=== PATIENT | female | born 1950 | race Hispanic/Latino ===

== ENCOUNTER 2019-07-21 14:51 | Emergency (ER) | payer MEDICARE ==
[2019-07-21 15:03] VITALS: BP 113/77
--- NOTE | 2019-07-21 15:08 | Event Note ---
ED Screening Note Date of service: 07/21/19 Time: 15:04 ED Screening Note: Patient here reports panic attack and out og xanax / Take 2 mg daily and ran out x 3ays and called Dr. Hudson and called office and no one called back. Reports nausea and shaking and feels like she is going through withdrawals. Denies cp or sob. Denies abdominal pain Anxiety- ran out of xanax. Managed by Psych This initial assessment/diagnostic orders/clinical plan/treatment(s) is/are subject to change based on patients health status, clinical progression and re- assessment by fellow clinical providers in the ED. Further treatment and workup at subsequent clinical providers discretion. Patient/guardian urged not to elope from the ED as their condition may be serious if not clinically assessed and managed. Initial orders include:
--- NOTE | 2019-07-21 16:20 | Emergency Department Report ---
ED Anxiety HPI - General Chief Complaint: Anxiety Stated Complaint: REFILL Time Seen by Provider: 07/21/19 15:03 Source: patient Mode of arrival: Ambulatory - History of Present Illness Initial Comments: Patient is a 69-year-old female who presents emergency room with complaints of a medication refill. She states that she ran out of her Xanax. States that she feels hot, has a postnasal drip, feels nervous. she denies any abdominal pain, chest pain, shortness of breath, vomiting, fever. She denies any SI, HI, or hallucinations. Patient states that she tried to call her doctor to refill her medications but did not yet get a response. Patients bottle of Xanax was filled on 06/27/19 and is supposed to last her until 07/28/19 the patient states she does not have anymore left. She states that she has had increased stress due to issues with her sibling. - Related Data Home Medications: Home Medications Medication Instructions Recorded Confirmed Last Taken Escitalopram [Lexapro] 20 mg PO DAILY 09/26/14 09/26/14 Unknown Gabapentin 400 mg PO TID 09/26/14 09/26/14 Unknown buPROPion SR [Wellbutrin SR] 100 mg PO BID 09/26/14 09/26/14 Unknown Previous Rx's Medication Instructions Recorded Last Taken Type Potassium Chloride [K-Dur] 20 meq PO BID #30 tablet 10/01/14 Unknown Rx Allergies/Adverse Reactions: Allergies Allergy/AdvReac Type Severity Reaction Status Date / Time No Known Drug Allergies Allergy Unknown Verified 09/26/14 14:31 ED Review of Systems ROS: Stated complaint: REFILL Other details as noted in HPI Comment: All other systems reviewed and negative ED Past Medical Hx - Past Medical History Previous Medical History?: Yes Hx Psychiatric Treatment: Yes - Surgical History Past Surgical History?: Yes Additional Surgical History: Unable to assess - Social History Smoking Status: Never Smoker Substance Use Type: None - Medications Home Medications: Home Medications Medication Instructions Recorded Confirmed Last Taken Type Escitalopram [Lexapro] 20 mg PO DAILY 09/26/14 09/26/14 Unknown History Gabapentin 400 mg PO TID 09/26/14 09/26/14 Unknown History buPROPion SR [Wellbutrin SR] 100 mg PO BID 09/26/14 09/26/14 Unknown History Potassium Chloride [K-Dur] 20 meq PO BID #30 tablet 10/01/14 Unknown Rx ED Physical Exam - General Limitations: No Limitations General appearance: alert, anxious - Head Head exam: Present: atraumatic, normocephalic - Eye Eye exam: Present: normal appearance, EOMI - ENT ENT exam: Present: mucous membranes moist - Respiratory Respiratory exam: Absent: respiratory distress - Cardiovascular Cardiovascular Exam: Present: regular rate - Neurological Exam Neurological exam: Present: alert, oriented X3 - Psychiatric Psychiatric exam: Present: normal affect, anxious - Skin Skin exam: Present: warm, dry, intact ED Course Vital Signs 07/21/19 15:01 Temperature 97.7 F Pulse Rate 71 Respiratory 16 Rate Blood Pressure 113/77 O2 Sat by Pulse 96 Oximetry ED Medical Decision Making - Medical Decision Making Patient is a 69-year-old female who presents emergency room with complaints of a medication refill. She states that she ran out of her Xanax. States that she feels hot, has a postnasal drip, feels nervous. she denies any abdominal pain, chest pain, shortness of breath, vomiting, fever. She denies any SI, HI, or hallucinations. Patient states that she tried to call her doctor to refill her medications but did not yet get a response. Patients bottle of Xanax was filled on 06/27/19 and is supposed to last her until 07/28/19 the patient states she does not have anymore left. She states that she has had increased stress due to issues with her sibling. vitals are normal. no clinical s/sx of withdrawal. discussed with pt that we would not be refilling her xanax today as she was supposed to have another weeks worth based on her prescription bottle. discussed she would have to receive this scheduled drug through her PCP or a psychiatrist. pt given hydroxyzine while in the ED for her anxiety and she did not drive to the ED. discussed the highly addictive properties of xanax and that the number 1 treatment for anxiety is coping mechanisms therapy and then the pharm therapy is an SSRI. advised pt to please follow-up with your primary care doctor on 07/23/19 to discuss refill of your medications. Please follow-up with a psychiatrist. Please practice coping mechanisms, watching videos to calm you do wn, therapy. return to the emergency room for any new or worsening symptoms. return immediately if begin experiencing thoughts of hurting yourself or others. Critical care attestation.: If time is entered above; I have spent that time in minutes in the direct care of this critically ill patient, excluding procedure time. ED Disposition Clinical Impression: Anxiety, Medication refill Disposition: - TO HOME OR SELFCARE Is pt being admited?: No Does the pt Need Aspirin: No Condition: Stable Instructions: Anxiety (ED) Additional Instructions: Please follow-up with your primary care doctor on 07/23/19 to discuss refill of your medications. Please follow-up with a psychiatrist. Please practice coping mechanisms, watching videos to calm you down, therapy. return to the emergency room for any new or worsening symptoms. return immediately if begin experiencing thoughts of hurting yourself or others. Referrals: [facility] [Outside] - 2-3 Days your, primary care doctor [Other] - 2-3 Days Time of Disposition: 16:18 Print Language: KOREAN
[2019-07-21] MEDS ORDERED: ATARAX PO ONE (17:00)
== END 2019-07-21 16:34 | disposition home or self-care (01) ==
LOC: ED 14:51
DX: F41.0 Panic disorder [episodic paroxysmal anxiety] (principal); Z76.0 Encounter for issue of repeat prescription; Z79.899 Other long term (current) drug therapy

== ENCOUNTER 2019-11-07 16:40 | Inpatient (IN) | payer MEDICARE ==
--- NOTE | 2019-11-07 18:12 | Emergency Department Report ---
Blank Doc - Documentation Documentation: 69-year-old female that presents with nausea, vomiting, and depression/anxiety. Denies HI/SI. This initial assessment/diagnostic orders/clinical plan/treatment(s) is/are subject to change based on patient's health status, clinical progression and re- assessment by fellow clinical providers in the ED. Further treatment and workup at subsequent clinical providers discretion. Patient/guardians urged not to elope from the ED as their condition may be serious if not clinically assessed and managed. Initial orders include: 1- Patient sent to [facility] for further evaluation and treatment 2- labs 3- UA
[2019-11-07 18:50] LABS: Basophils % (Auto) 0.3 % (0.0-1.8); Hematocrit 39.8 % (30.3-42.9); Hemoglobin 13.1 gm/dl (10.1-14.3); Lymphocytes # (Auto) 1.4 K/mm3 (1.2-5.4); Lymphocytes % (Auto) 10.8 % (13.4-35.0); Mean Corpuscular HGB Conc 33 % (30-34); Mean Corpuscular Volume 91 fl (79-97); Monocytes # (Auto) 0.8 K/mm3 (0.0-0.8); Platelet Count 488 K/mm3 (140-440); Red Blood Count 4.35 M/mm3 (3.65-5.03); Red Cell Distribution Width 13.1 % (13.2-15.2)
[2019-11-07 19:05] LABS: Alanine Aminotransferase 23 units/L (7-56); Albumin 4.3 g/dL (3.9-5); BUN/Creatinine Ratio 16; Blood Urea Nitrogen 11 mg/dL (7-17); Calcium 8.9 mg/dL (8.4-10.2); Hemolysis Index 60
--- NOTE | 2019-11-07 20:19 | Emergency Department Report ---
Vomiting/Diarrhea - HPI Chief Complaint: Nausea/Vomiting/Diarrhea Stated Complaint: N/V/ABD PAIN Time Seen by Provider: 11/07/19 18:11 Duration: 9 days Severity: severe Nausea/Vomiting Severity: Severe Diarrhea Severity: None Pain Location: Generalized Pain Severity: Severe Symptoms: No Watery Diarrhea, No Bloody diarrhea, No Fever, No Able to Tolerate Fluids, No Recent Unusual Foods, No Recent Untreated Water, No Recent use of Antibiotics, No Family w/ Similar Symptoms, No Contacts w/ Similar Symptoms, No Rash, No Hematuria, No Recent URI Symptoms Other History: Patient is a 69-year-old female that presents emergency room with complaints of nausea vomiting x9 days. Patient states that she has not been able to hold any food down for 9 days. Patient states she has been able to hold any water down for 9 days. Patient denies diarrhea. Patient states she is h aving abdominal pain. Patient states her pain is a 3 out of 10. Patient states her abdominal pain is intermittent. Patient states with rest her pain is better. Patient states her pain is worse with vomiting and movement. Patient states she was seen yesterday at another ER, [facility] and was given IV fluids and IV Zofran. Patient was then discharged with oral Zofran. Patient states she is still vomiting. ED Review of Systems ROS: Stated complaint: N/V/ABD PAIN Other details as noted in HPI Constitutional: denies: chills, fever Eyes: denies: eye pain, eye discharge, vision change ENT: denies: ear pain, throat pain Respiratory: denies: cough, shortness of breath, wheezing Cardiovascular: denies: chest pain, palpitations Endocrine: no symptoms reported Gastrointestinal: abdominal pain, nausea, vomiting. denies: diarrhea, constipation, hematemesis, melena, hematochezia Genitourinary: denies: urgency, dysuria, discharge Musculoskeletal: denies: back pain, joint swelling, arthralgia Skin: denies: rash, lesions Neurological: denies: headache, weakness, paresthesias Psychiatric: denies: anxiety, depression Hematological/Lymphatic: denies: easy bleeding, easy bruising ED Past Medical Hx - Past Medical History Previous Medical History?: Yes Hx Psychiatric Treatment: Yes (ANXIETY,DEPRESSION) Hx Dementia: Yes (NEW [place]NSET) - Surgical History Past Surgical History?: No Additional Surgical History: Unable to assess - Social History Smoking Status: Never Smoker Substance Use Type: None - Medications Home Medications: Home Medications Medication Instructions Recorded Confirmed Last Taken Type Escitalopram [Lexapro] 20 mg PO DAILY 09/26/14 11/07/19 Unknown History Gabapentin 400 mg PO TID 09/26/14 11/07/19 Unknown History buPROPion SR [Wellbutrin SR] 100 mg PO BID 09/26/14 11/07/19 Unknown History Potassium Chloride [K-Dur] 20 meq PO BID #30 tablet 10/01/14 11/07/19 Unknown Rx Promethazine HCl [Promethazine TAB] 12.5 mg PO [id number] PRN #12 tab 09/27/19 11/07/19 Unknown Rx Levothyroxine [Synthroid] 75 mcg PO QAM 11/07/19 11/07/19 Unknown History [place] Carbonate ER [Lithobid ER] 1 tab PO QHS 11/07/19 11/08/19 Unknown History QUEtiapine [SEROquel] 100 mg PO QDAY 11/07/19 11/07/19 Unknown History Vomiting Diarrhea Exam - Exam General: Vital signs noted. No distress. Alert and acting appropriately. HEENT: Yes Moist Mucous Membranes, No Pharyngeal Erythema, No Pharyngeal Exudates, No Rhinorrhea, No Conjuctival Injection, No Frontal Tenderness, No Maxillary Tenderness Neck: No Adenopathy, No Rigidity Lungs: Yes Clear Lung Sounds, Yes Good Air Exchange, No Wheezes, No Stridor, No Cough, No Nasal Flaring, No Retractions, No Use of Accessory Muscles Heart exam: Regular: Yes, Murmur: No, Tachycardia: No Abdomen: Tenderness: No, Peritoneal Signs: No, Distention: No, Hyperactive Bowel sounds: No Skin exam: Rash: No, Edema: No, Normal turgor: Yes Neurologic: Alert and oriented, no deficits. Musculoskeletal: Unremarkable. ED Course Vital Signs 11/07/19 18:08 Temperature 97.7 F Pulse Rate 73 Respiratory 20 Rate Blood Pressure 168/77 O2 Sat by Pulse 99 Oximetry - Reevaluation(s) Reevaluation #1: Initial evaluation done. Patient will have a CT of the abdomen since the patient is having 9 days of nausea and vomiting and has had 2 ER visits. 11/07/19 20:31 Reevaluation #2: Patient is still nauseated. I discussed all results with patient. I Discussed plan of care with patient. Patient will be admitted to the hospitalist service. Patient agrees with plan of care and admission. 11/07/19 22:30 - Consultations Consultation #1: Hospitalist consulted for admission. Hospitalist to admit patient. Bridge orders placed. 11/07/19 22:33 ED Medical Decision Making - Lab Data Result diagrams: 11/07/19 18:37 11/07/19 18:37 - Radiology Data Radiology results: report reviewed CT ABDOMEN AND PELVIS WITH CONTRAST INDICATION / CLINICAL INFORMATION: Nausea, vomiting, abdominal pain. TECHNIQUE: Axial CT images were obtained through the abdomen and pelvis after 100 mL Omnipaque [address] scans at this location are performed using CT dose reduction for ALARA by means of automated exposure control. COMPARISON: CT scan from yesterday FINDINGS: There is some mild motion artifact on this examination. LOWER CHEST: No significant abnormality. LIVER: No significant abnormality. BILIARY SYSTEM: No significant abnormality. PANCREAS: No significant abnormality. SPLEEN: No significant abnormality. ADRENALS: No significant abnormality. KIDNEYS and URETERS: No significant abnormality. STOMACH / BOWEL: No acute inflammatory changes or evidence of obstruction in the stomach or small bowel. There is colonic diverticulosis but no evidence of acute diverticulitis. The appendix is normal. PERITONEUM: No free fluid. No free air. No fluid collection. LYMPH NODES: No adenopathy. VASCULAR STRUCTURES: Minimal atherosclerosis. No aneurysm. The celiac axis and the superior and inferior mesenteric artery origins are widely patent. Renal arteries are normal. URINARY BLADDER: Distended but otherwise unremarkable. No wall thickening, nodularity or calculus. REPRODUCTIVE ORGANS: Uterus is absent. No significant adnexal abnormality. ADDITIONAL FINDINGS: None SKELETAL SYSTEM: No acute finding or significant change. Lumbar scoliosis. IMPRESSION: No significant abnormality. No significant change - Medical Decision Making Patient is a 69-year-old female that presents emergency room for abdominal pain and intractable nausea vomiting. Patient did not have any food or water for 9 days. Patient was recently seen in another ER for the same symptoms and was given outpatient treatment. Patient essentially failed outpatient treatment. Patient will be admitted to the hospitalist service for observation. Patient given IV fluids and Zofran. Patient's labs are remarkable for metabolic acidosis and hypokalemia. - Differential Diagnosis Gastritis, gastroenteritis, intractable n/v, abdominal pain, SBO Critical Care Time: Yes Critical care time in (mins) excluding proc time.: 35 Critical care attestation.: If time is entered above; I have spent that time in minutes in the direct care of this critically ill patient, excluding procedure time. Critical Care Time: 35 minutes ED Disposition Clinical Impression: Intractable nausea and vomiting, Gastroenteritis, Metabolic acidosis, Hypokalemia, Dehydration Abdominal pain Qualifiers: Abdominal location: generalized Qualified Code(s): R10.84 - Generalized abdominal pain Disposition: 09 OP ADMIT IP TO THIS HOSP Is pt being admited?: Yes Does the pt Need Aspirin: No Condition: Critical Time of Disposition: 22:33
[2019-11-07] MEDS ORDERED: ONDANSETRON 4 MG/2 ML INJ IV ONE (20:28)
[2019-11-07] MEDS ORDERED: SODIUM CHLORIDE 0.9% 1000 ML 1,000 ML IV ONE (20:28)
--- NOTE | 2019-11-07 21:51 | Cat Scan Report ---
CT ABDOMEN AND PELVIS WITH CONTRAST INDICATION / CLINICAL INFORMATION: Nausea, vomiting, abdominal pain. TECHNIQUE: Axial CT images were obtained through the abdomen and pelvis after 100 mL Omnipaque [address] scans at this location are performed using CT dose reduction for ALARA by means of automated exposure control. COMPARISON: CT scan from yesterday FINDINGS: There is some mild motion artifact on this examination. LOWER CHEST: No significant abnormality. LIVER: No significant abnormality. BILIARY SYSTEM: No significant abnormality. PANCREAS: No significant abnormality. SPLEEN: No significant abnormality. ADRENALS: No significant abnormality. KIDNEYS and URETERS: No significant abnormality. STOMACH / BOWEL: No acute inflammatory changes or evidence of obstruction in the stomach or small bow el. There is colonic diverticulosis but no evidence of acute diverticulitis. The appendix is normal. PERITONEUM: No free fluid. No free air. No fluid collection. LYMPH NODES: No adenopathy. VASCULAR STRUCTURES: Minimal atherosclerosis. No aneurysm. The celiac axis and the superior and infer ior mesenteric artery origins are widely patent. Renal arteries are normal. URINARY BLADDER: Distended but otherwise unremarkable. No wall thickening, nodularity or calculus. REPRODUCTIVE ORGANS: Uterus is absent. No significant adnexal abnormality. ADDITIONAL FINDINGS: None SKELETAL SYSTEM: No acute finding or significant change. Lumbar scoliosis. IMPRESSION: No significant abnormality. No significant change Signer Name: Mian Butler MD Signed: 11/07/2019 9:47 PM Workstation Name: [id number]
[2019-11-07 22:11] LABS: Bilirubin,Urine NEG (Negative); Blood,Urine NEG (Negative); Color,Urine Straw (Yellow); Protein,Urine <15 mg/dL mg/dL (Negative); Urobilinogen,Urine < 2.0 mg/dL (<2.0)
--- NOTE | 2019-11-07 23:15 | History and Physical Report ---
History of Present Illness Date of admission: 11/07/19 22:34 History of present illness: 69-year-old woman with a history of anxiety, depression, dementia was brought to emergency room because she states that she has been having nausea vomiting for 9 days. However when I saw the patient she states she only have nausea, no vomiting. She was seen at [facility] on Tuesday for same symptoms and was discharged home. She came to the emergency room on the of this month, she is under a different medical record number, her work-up was negative including a CAT scan of the abdomen and pelvis, the patient was discharged to home, after tolerating oral intake in the emergency room. Patient is being admitted for intractable nausea, decreased oral intake Review Of Systems: Constitutional: no weight loss, fever, chills Ears, eyes, nose, mouth and throat: no nasal congestion, no nasal discharge, no sinus pressure, blurry vision, diplopia Neck: No neck pain or rigidity. Cardiovascular: No palpitations, chest pain Respiratory: No shortness of breath, cough Gastrointestinal: No hematochezia Genitourinary : no dysuria, frequency Musculoskeletal: no muscle ache , joint pain Integumentary: no rash, no pruritis Neurological: no parathesias, focal weakness Endocrine: no cold or heat intolerance, no polyuria or polydipsia Hematologic/Lymphatic: no easy bruising, no easy bleeding, no gland swelling Allergic/Immunologic: no urticaria, no angioedema. PAST MEDICAL HISTORY: anxiety, depression, dementia PAST SURGICAL HISTORY: None SOCIAL HISTORY: Denies alcohol, tobacco, drugs FAMILY HISTORY: Hypertension Medications and Allergies Allergies Allergy/AdvReac Type Severity Reaction Status Date / Time No Known Drug Allergies Allergy Unknown Verified 09/26/14 14:31 Home Medications Medication Instructions Recorded Confirmed Last Taken Type Escitalopram [Lexapro] 20 mg PO DAILY 09/26/14 11/07/19 Unknown History Gabapentin 400 mg PO TID 09/26/14 11/07/19 Unknown History buPROPion SR [Wellbutrin SR] 100 mg PO BID 09/26/14 11/07/19 Unknown History Potassium Chloride [K-Dur] 20 meq PO BID #30 tablet 10/01/14 11/07/19 Unknown Rx Promethazine HCl [Promethazine TAB] 12.5 mg PO [id number] PRN #12 tab 09/27/19 11/07/19 Unknown Rx Levothyroxine [Synthroid] 75 mcg PO QAM 11/07/19 11/07/19 Unknown History [place] Carbonate ER [Lithobid ER] 1 tab PO QHS 11/07/19 11/08/19 Unknown History QUEtiapine [SEROquel] 100 mg PO QDAY 11/07/19 11/07/19 Unknown History Active Meds: Active Medications Acetaminophen (Tylenol) 650 mg PO Q4H PRN PRN Reason: Pain MILD(1-3)/Fever >100.5/HUMPHRIES Sodium Chloride (Nacl 0.9% 1000 Ml) 1,000 mls @ 125 mls/hr IV DIRECT SHELBY Potassium Chloride (Kcl 10meq/100ml) 10 meq in 100 mls @ 100 mls/hr IV Q1H SHELBY Stop: 11/08/19 03:44 Ondansetron HCl (Zofran) 4 mg IV Q4H PRN PRN Reason: Nausea And Vomiting Potassium Chloride (K-Dur) 40 meq PO ONCE ONE Stop: 11/07/19 23:29 Sodium Chloride (Sodium Chloride Flush Syringe 10 Ml) 10 ml IV BID SHELBY Sodium Chloride (Sodium Chloride Flush Syringe 10 Ml) 10 ml IV PRN PRN PRN Reason: LINE FLUSH Exam - Physical Exam Narrative exam: Gen. appearance: Patient lying in bed, no apparent distress HEENT: Normocephalic, atraumatic, pupils equally round and reactive to light, extraocular movement intact, and no sclericterus,. No JVD or thyromegaly or nodule,neck supple, no carotid bruit ,mucous membranes moist, no exudate or erythema Heart: S1, S2, regular rate and rhythm Lungs: Clear bilaterally, breathing comfortable Abdomen: Positive bowel sounds, nontender, nondistended, no organomegaly Extremity: no edema, cyanosis, clubbing Skin: No rash, nodules, warm, dry Neuro: speech is fluent, moves extremities, sensory intact - Constitutional Vitals: Temp Pulse Resp BP Pulse Ox 97.7 F 73 20 168/77 99 11/07/19 18:08 11/07/19 18:08 11/07/19 18:08 11/07/19 18:08 11/07/19 18:08 Results - Labs CBC & Chem 7: 11/08/19 03:47 11/08/19 03:47 Labs: Abnormal lab results 11/07/19 11/07/19 Range/Units 18:37 18:37 WBC 13.2 H (4.5-11.0) K/mm3 RDW 13.1 L (13.2-15.2) % Plt Count 488 H (140-440) K/mm3 Lymph % (Auto) 10.8 L (13.4-35.0) % Seg Neutrophils % 82.9 H (40.0-70.0) % Seg Neutrophils # 11.0 H (1.8-7.7) K/mm3 Sodium 134 L (137-145) mmol/L Potassium 3.0 L (3.6-5.0) mmol/L Carbon Dioxide 17 L (22-30) mmol/L - Imaging and Cardiology CT scan - abdomen: report reviewed CT scan - pelvis: report reviewed Assessment and Plan Assessment Intractable nausea, unable to tolerate oral intake Start IV fluids, antiemetics Encourage oral intake Hypokalemia Replete potassium Hyponatremia Start IV fluids, monitor sodium Anxiety, depression Continue outpatient medications Stress-induced leukocytosis DVT prophylaxis
[2019-11-07] MEDS ORDERED: POTASSIUM CHLORIDE ER 20 MEQ TAB PO ONE ×2 (23:21→23:28)
[2019-11-07] MEDS: SODIUM CHLORIDE 0.9% 1000 ML 1,000 ML IV SCH (23:56)
[2019-11-07] MEDS: ONDANSETRON 4 MG/2 ML INJ IV PRN (23:57)
[2019-11-08] MEDS: POTASSIUM CHLORIDE 10 MEQ 10 MEQ/100 ML BAG IV SCH ×4 (01:02→04:05)
[2019-11-08] MEDS: ACETAMINOPHEN 325 MG TAB PO PRN ×3 (01:11→16:27)
[2019-11-08 04:03] LABS: Basophils % (Auto) 0.3 % (0.0-1.8); Eosinophils % (Auto) 0.3 % (0.0-4.3); Hematocrit 34.9 % (30.3-42.9); Hemoglobin 11.9 gm/dl (10.1-14.3); Lymphocytes # (Auto) 2.3 K/mm3 (1.2-5.4); Mean Corpuscular HGB Conc 34 % (30-34); Mean Corpuscular Volume 91 fl (79-97); Monocytes # (Auto) 0.9 K/mm3 (0.0-0.8); Monocytes % (Auto) 6.5 % (0.0-7.3); Platelet Count 447 K/mm3 (140-440); Red Blood Count 3.86 M/mm3 (3.65-5.03); Red Cell Distribution Width 13.1 % (13.2-15.2)
[2019-11-08] MEDS: ONDANSETRON 4 MG/2 ML INJ IV PRN ×3 (04:10→12:22)
[2019-11-08 04:24] LABS: BUN/Creatinine Ratio 13; Blood Urea Nitrogen 8 mg/dL (7-17); Calcium 7.7 mg/dL (8.4-10.2); Hemolysis Index 13
[2019-11-08] MEDS: SODIUM CHLORIDE 0.9% 1000 ML 1,000 ML IV SCH ×2 (07:01→19:22)
[2019-11-08] MEDS ORDERED: PNEUMOCOCCAL 23 Valent 0.5 ML VIAL IM ONE (12:00)
[2019-11-08] MEDS ORDERED: PROMETHAZINE 25 MG RECT SUPP PR PRN (14:00)
[2019-11-08] MEDS ORDERED: PROMETHAZINE HCL 12.5 MG PO PRN (18:46)
[2019-11-08] MEDS ORDERED: PROMETHAZINE 25 MG TAB PO PRN (19:02)
[2019-11-08] MEDS: ESCITALOPRAM 10 MG TAB PO SCH (19:24)
[2019-11-08] MEDS: GABAPENTIN 400 MG CAP PO SCH ×2 (19:25→19:37)
[2019-11-08] MEDS ORDERED: LITHIUM CARBONATE ER 450 MG TAB PO SCH (22:00)
[2019-11-08] MEDS: POTASSIUM CHLORIDE ER 20 MEQ TAB PO SCH (22:05)
[2019-11-08] MEDS: buPROPion SR 100 MG TAB PO SCH (22:05)
[2019-11-08] MEDS: LITHIUM CARBONATE ER 300 MG TAB PO SCH (22:06)
[2019-11-09] MEDS: SODIUM CHLORIDE 0.9% 1000 ML 1,000 ML IV SCH ×2 (06:30→21:45)
--- NOTE | 2019-11-09 06:36 | Progress Note ---
Assessment and Plan - Patient Problems (1) Hyponatremia Current Visit: Yes Status: Acute Plan to address problem: Patient feels very weak and dizzy when standing.Unable to walk. Vont IV Fluids Na level 130 Recheck Na level (2) Gastroenteritis Current Visit: Yes Status: Acute Plan to address problem: Persistent Nausea GI consult (3) Dehydration Current Visit: Yes Status: Acute Plan to address problem: COnt IV fluids (4) Hypokalemia Current Visit: Yes Status: Acute Plan to address problem: Corrected (5) Intractable nausea and vomiting Current Visit: Yes Status: Acute Plan to address problem: Cont Zofran /Protonix and reglan (6) DVT prophylaxis Current Visit: No Status: Acute Plan to address problem: On SCD's and GI prophylaxis (7) Discharge planning issues Current Visit: No Status: Acute Plan to address problem: Patient symptomatically worse off. Tried discharging but was very debilitated PT eval requested Subjective Date of service: 11/08/19 Principal diagnosis: Acute Gastritis and Hyponatremia Interval history: Patient feels very weak and severe nausea.Tolerating clears.Feels very weak especially when standing and trying to walk. Objective - Constitutional Vitals: Vital Signs - 12hr 11/08/19 11/09/19 11/09/19 20:20 02:00 02:50 Temperature 99.2 F 98.4 F Pulse Rate 57 L 58 L Pulse Rate [ 57 L Right Brachial] Respiratory 18 18 18 Rate Blood Pressure 159/74 146/74 O2 Sat by Pulse 97 97 96 Oximetry General appearance: Present: no acute distress, well-nourished - EENT Eyes: PERRL, EOM intact ENT: hearing intact, clear oral mucosa, other (Dry mucous membranes) Ears: bilateral: normal - Neck Neck: supple, normal ROM - Respiratory Respiratory effort: normal Respiratory: bilateral: CTA - Breasts Breasts: normal - Cardiovascular Rhythm: regular Heart Sounds: Present: S1 & S2. Absent: gallop, rub Extremities: pulses intact, No edema, normal color, Full ROM - Gastrointestinal General gastrointestinal: Present: soft, non-tender, non-distended, normal bowel sounds - Genitourinary Female genitourinary: normal - Integumentary Integumentary: clear, warm, dry - Musculoskeletal Musculoskeletal: 1, strength equal bilaterally - Neurologic Neurologic: moves all extremities - Psychiatric Psychiatric: memory intact, appropriate mood/affect, intact judgment & insight - Labs CBC & Chem 7: 11/08/19 03:47 11/08/19 03:47
[2019-11-09] MEDS ORDERED: METOCLOPRAMIDE 10 MG/2 ML INJ IV PRN (06:45)
--- NOTE | 2019-11-09 07:56 | Progress Note ---
Assessment and Plan Assessment and plan: Patient is a 69-year-old woman with a history of anxiety, depression, dementia was brought to emergency room because she states that she has been having nausea vomiting for 9 days. However when I saw the patient she states she only have nausea, no vomiting. She was seen at [facility] on Tuesday for same symptoms and was discharged home. She came to the emergency room on the of this month, she is under a different medical record number, her work-up was negative including a CAT scan of the abdomen and pelvis, the patient was discharged to home, after tolerating oral intake in the emergency room. Patient is being admitted for intractable nausea, decreased oral intake * CT abd/pelvis with contast: No acute findings Intractable nausea, unable to tolerate oral intake: consulted GI, treat with antiemetics Hyponatremia, worsening: consulted Nephrology, treat with IVF Leukocytosis: consulted ID Drop in Hgb/HCT: hold a/c, repeat h/h in am Hypokalemia: Replete potassium Anxiety, depression: Continue outpatient medications DVT prophylaxis scd only as h/h dropped History Interval history: Patient was seen and examined. Follow-up on current diagnosis n/v. Overnight uneventful as no events directly reported to me. Patient denies any chest pain, shortness breath, or severe headaches. Imaging, nursing note, chart, labs and old chart reviewed. Discussed with patient. Hospitalist Physical - Physical exam Narrative exam: Gen: WDWN, NAD, Awake, Alert, Orientated HEENT: NCAT, EOMI, PERRL, OP Clear Neck: supple, no adenopathy, no thyromegaly, no JVD CVS/Heart: RRR, normal S1S2, pulses present bilaterally Chest/Lungs: CTA B, Symmetrical chest expansion, good air entry bilaterally GI/Abdomen: soft, NTND, good bowel sounds, no guarding or rebound /Bladder: no suprapubic tenderness, no CVA or paraspinal tenderness Extermity/Skin: no c/c/e, no obvious rash MSK: FROM x 4 Neuro: CN 2-12 grossly intact, no new focal deficits Psych: calm - Constitutional Vitals: Temp Pulse Resp BP Pulse Ox 98.4 F 58 L 18 146/74 96 11/09/19 02:50 11/09/19 02:50 11/09/19 02:50 11/09/19 02:50 11/09/19 02:50 General appearance: Present: no acute distress, well-nourished Results - Labs CBC & Chem 7: 11/08/19 03:47 11/08/19 03:47 Labs: Laboratory Last Values WBC 13.4 K/mm3 (4.5-11.0) H 11/08/19 03:47 RBC 3.86 M/mm3 (3.65-5.03) 11/08/19 03:47 Hgb 11.9 gm/dl (10.1-14.3) 11/08/19 03:47 Hct 34.9 % (30.3-42.9) 11/08/19 03:47 MCV 91 fl (79-97) 11/08/19 03:47 MCH 31 pg (28-32) 11/08/19 03:47 MCHC 34 % (30-34) 11/08/19 03:47 RDW 13.1 % (13.2-15.2) L 11/08/19 03:47 Plt Count 447 K/mm3 (140-440) H 11/08/19 03:47 Lymph % (Auto) 17.0 % (13.4-35.0) 11/08/19 03:47 Dickenson % (Auto) 6.5 % (0.0-7.3) 11/08/19 03:47 Eos % (Auto) 0.3 % (0.0-4.3) 11/08/19 03:47 Baso % (Auto) 0.3 % (0.0-1.8) 11/08/19 03:47 Lymph # 2.3 K/mm3 (1.2-5.4) 11/08/19 03:47 Dickenson # 0.9 K/mm3 (0.0-0.8) H 11/08/19 03:47 Eos # 0.0 K/mm3 (0.0-0.4) 11/08/19 03:47 Baso # 0.0 K/mm3 (0.0-0.1) 11/08/19 03:47 Seg Neutrophils % 75.9 % (40.0-70.0) H 11/08/19 03:47 Seg Neutrophils # 10.2 K/mm3 (1.8-7.7) H 11/08/19 03:47 Sodium 130 mmol/L (137-145) L 11/08/19 03:47 Potassium 3.6 mmol/L (3.6-5.0) 11/08/19 03:47 Chloride 98.8 mmol/L (98-107) 11/08/19 03:47 Carbon Dioxide 16 mmol/L (22-30) L 11/08/19 03:47 Anion Gap 19 mmol/L 11/08/19 03:47 BUN 8 mg/dL (7-17) 11/08/19 03:47 Creatinine 0.6 mg/dL (0.7-1.2) L 11/08/19 03:47 Estimated GFR > 60 ml/min 11/08/19 03:47 BUN/Creatinine Ratio 13 % 11/08/19 03:47 Glucose 103 mg/dL (65-100) H 11/08/19 03:47 Calcium 7.7 mg/dL (8.4-10.2) L 11/08/19 03:47 Total Bilirubin 0.60 mg/dL (0.1-1.2) 11/07/19 18:37 AST 35 units/L (5-40) 11/07/19 18:37 ALT 23 units/L (7-56) 11/07/19 18:37 Alkaline Phosphatase 71 units/L (35-129) 11/07/19 18:37 Total Protein 7.3 g/dL (6.3-8.2) 11/07/19 18:37 Albumin 4.3 g/dL (3.9-5) 11/07/19 18:37 Albumin/Globulin Ratio 1.4 % 11/07/19 18:37 Lipase 40 units/L (13-60) 11/07/19 18:37 Urine Color Straw (Yellow) 11/07/19 21:39 Urine Turbidity Clear (Clear) 11/07/19 21:39 Urine pH 7.0 (5.0-7.0) 11/07/19 21:39 Ur Specific [place] 1.017 (1.003-1.030) 11/07/19 21:39 Urine Protein <15 mg/dl mg/dL (Negative) 11/07/19 21:39 Urine Glucose (UA) Neg mg/dL (Negative) 11/07/19 21:39 Urine Ketones 20 mg/dL (Negative) 11/07/19 21:39 Urine Blood Neg (Negative) 11/07/19 21:39 Urine Nitrite Neg (Negative) 11/07/19 21:39 Urine Bilirubin Neg (Negative) 11/07/19 21:39 Urine Urobilinogen < 2.0 mg/dL (<2.0) 11/07/19 21:39 Ur Leukocyte Esterase Sm (Negative) 11/07/19 21:39 Urine WBC (Auto) 3.0 /HPF (0.0-6.0) 11/07/19 21:39 Urine RBC (Auto) 3.0 /HPF (0.0-6.0) 11/07/19 21:39 U Epithel Cells (Auto) 2.0 /HPF (0-13.0) 11/07/19 21:39 Active Medications - Current Medications Current Medications: Generic Name Dose Route Start Last Admin Trade Name Freq PRN Reason Stop Dose Admin Acetaminophen 650 mg 11/07/19 23:06 11/08/19 16:27 Tylenol PO 650 mg Q4H PRN Administration Pain MILD(1-3)/Fever >100.5/HUMPHRIES Bupropion HCl 100 mg 11/08/19 22:00 11/08/19 22:05 Wellbutrin Sr PO 100 mg BID [facility] Administration Escitalopram Oxalate 20 mg 11/08/19 19:00 11/08/19 19:24 Lexapro PO 20 mg DAILY [facility] Administration Gabapentin 400 mg 11/08/19 20:00 11/08/19 19:37 Gabapentin PO Not Given TID [facility] Sodium Chloride 1,000 mls @ 125 mls/hr 11/07/19 23:15 11/09/19 06:30 Nacl 0.9% 1000 Ml IV 125 mls/hr DIRECT [facility] Administration Levothyroxine Sodium 75 mcg 11/09/19 10:00 Synthroid PO QAM [facility] [place] Carbonate 300 mg 11/08/19 22:00 11/08/19 22:06 Lithobid Er PO 300 mg QHS [facility] Administration Metoclopramide HCl 10 mg 11/09/19 06:45 Reglan IV Q6H PRN Nausea And Vomiting Ondansetron HCl 4 mg 11/07/19 23:06 11/08/19 12:22 Zofran IV 4 mg Q4H PRN Administration Nausea And Vomiting Pantoprazole Sodium 40 mg 11/09/19 06:44 Protonix IV BID [facility] Pneumococcal Polyvalent Vaccine 0.5 ml 11/09/19 12:00 Pneumovax 23 IM 11/09/19 12:01 .ONCE ONE Potassium Chloride 20 meq 11/08/19 22:00 11/08/19 22:05 K-Dur PO 20 meq BID [facility] Administration Promethazine HCl 25 mg 11/08/19 14:00 11/08/19 14:26 Phenergan [place] 25 mg QID PRN Administration Nausea And Vomiting Promethazine HCl 12.5 mg 11/08/19 19:02 11/08/19 19:23 Phenergan PO 12.5 mg Q6H PRN Administration Nausea And Vomiting Quetiapine Fumarate 100 mg 11/09/19 10:00 Seroquel PO QDAY [facility] Sodium Chloride 10 ml 11/08/19 10:00 11/08/19 22:06 Sodium Chloride Flush Syringe 10 Ml IV 10 ml BID [facility] Administration Sodium Chloride 10 ml 11/07/19 23:06 Sodium Chloride Flush Syringe 10 Ml IV PRN PRN LINE FLUSH
[2019-11-09] MEDS: GABAPENTIN 400 MG CAP PO SCH ×3 (08:35→21:43)
[2019-11-09 09:15] LABS: BUN/Creatinine Ratio 7; Blood Urea Nitrogen 5 mg/dL (7-17); Calcium 7.9 mg/dL (8.4-10.2); Hemolysis Index 7
--- NOTE | 2019-11-09 10:22 | Consultation ---
History of Present Illness - Reason for Consult Consult date: 11/09/19 hyponatremia - History of Present Illness 69-year-old woman with history of anxiety, depression, dementia was brought to emergency room due to intractable nausea, vomiting. She was seen at [facility] on Tuesday for same symptoms and was discharged home. Denies having any known kidney or electrolyte disorders previously. Currently feeling better, denies any acute issues. Past History Past Medical History: other (depression, anxiety) Past Surgical History: No surgical history Social history: no significant social history Family history: no significant family history Medications and Allergies Allergies Allergy/AdvReac Type Severity Reaction Status Date / Time No Known Drug Allergies Allergy Unknown Verified 09/26/14 14:31 Home Medications Medication Instructions Recorded Confirmed Last Taken Type RX: Escitalopram [Lexapro] 20 mg PO DAILY 09/26/14 11/07/19 Unknown History RX: Gabapentin 400 mg PO TID 09/26/14 11/07/19 Unknown History RX: buPROPion SR [Wellbutrin SR] 100 mg PO BID 09/26/14 11/07/19 Unknown History RX: Potassium Chloride [K-Dur] 20 meq PO BID #30 tablet 10/01/14 11/07/19 Unknown Rx Promethazine HCl [Promethazine TAB] 12.5 mg PO [id number] PRN #12 tab 09/27/19 11/07/19 Unknown Rx Levothyroxine [Synthroid] 75 mcg PO QAM 11/07/19 11/07/19 Unknown History QUEtiapine [SEROquel] 100 mg PO QDAY 11/07/19 11/07/19 Unknown History RX: [place] Carbonate ER [Lithobid 1 tab PO QHS 11/07/19 11/08/19 Unknown History ER] Active Meds: Active Medications Acetaminophen (Tylenol) 650 mg PO Q4H PRN PRN Reason: Pain MILD(1-3)/Fever >100.5/HUMPHRIES Last Admin: 11/08/19 16:27 Dose: 650 mg Documented by: Bupropion HCl (Wellbutrin Sr) 100 mg PO BID [facility] Last Admin: 11/08/19 22:05 Dose: 100 mg Documented by: Escitalopram Oxalate (Lexapro) 20 mg PO DAILY [facility] Last Admin: 11/08/19 19:24 Dose: 20 mg Documented by: Gabapentin (Gabapentin) 400 mg PO TID [facility] Last Admin: 11/08/19 19:37 Dose: Not Given Documented by: Sodium Chloride (Nacl 0.9% 1000 Ml) 1,000 mls @ 125 mls/hr IV DIRECT [facility] Last Admin: 11/09/19 06:30 Dose: 125 mls/hr Documented by: Levothyroxine Sodium (Synthroid) 75 mcg PO QAM [facility] [place] Carbonate (Lithobid Er) 300 mg PO QHS [facility] Last Admin: 11/08/19 22:06 Dose: 300 mg Documented by: Metoclopramide HCl (Reglan) 10 mg IV Q6H PRN PRN Reason: Nausea And Vomiting Ondansetron HCl (Zofran) 4 mg IV Q4H PRN PRN Reason: Nausea And Vomiting Last Admin: 11/08/19 12:22 Dose: 4 mg Documented by: Pantoprazole Sodium (Protonix) 40 mg IV BID [facility] Pneumococcal Polyvalent Vaccine (Pneumovax 23) 0.5 ml IM .ONCE ONE Stop: 11/09/19 12:01 Potassium Chloride (K-Dur) 20 meq PO BID [facility] Last Admin: 11/08/19 22:05 Dose: 20 meq Documented by: Promethazine HCl (Phenergan) 25 mg [place] QID PRN PRN Reason: Nausea And Vomiting Last Admin: 11/08/19 14:26 Dose: 25 mg Documented by: Promethazine HCl (Phenergan) 12.5 mg PO Q6H PRN PRN Reason: Nausea And Vomiting Last Admin: 11/08/19 19:23 Dose: 12.5 mg Documented by: Quetiapine Fumarate (Seroquel) 100 mg PO QDAY [facility] Sodium Chloride (Sodium Chloride Flush Syringe 10 Ml) 10 ml IV BID [facility] Last Admin: 11/08/19 22:06 Dose: 10 ml Documented by: Sodium Chloride (Sodium Chloride Flush Syringe 10 Ml) 10 ml IV PRN PRN PRN Reason: LINE FLUSH Review of Systems All systems: negative (as her HPI) Exam - Vital Signs Vital signs: Vital Signs Temp Pulse Resp BP Pulse Ox 97.7 F 68 20 168/77 99 11/07/19 16:53 11/07/19 16:53 11/07/19 16:53 11/07/19 16:53 11/07/19 16:53 - Physical Exam Narrative exam: Constitutional: no acute distress Head: NC/AT Neck: supple Lungs: clear to auscultation CV: RRR, no M/R/G Abdomen: soft, non-tender, bowel sounds present Back: nontender Extremities: no edema, pulses WNL Skin: intact Neuro: no focal deficits, alert and oriented x4 Results - Lab Results 11/08/19 03:47 11/09/19 07:32 Most recent lab results Calcium 7.9 mg/dL (8.4-10.2) L 11/09/19 07:32 Magnesium 1.90 mg/dL (1.7-2.3) 11/09/19 07:32 Assessment and Plan This is a 69 year old woman who presents with nausea, vomiting. Found to have mild hyponatremia. # Hyponatremia: sodium 134->130->138 with supportive measures. Likely dehydration related. Will follow peripherally, renal function WNL. Further workup pending sodium trend.
--- NOTE | 2019-11-09 10:24 | Gastroenterology Consultation ---
<PIERCE DANGELO - Last Filed: 11/09/19 10:34> History of Present Illness - Reason for Consult Consult date: 11/09/19 N/V Requesting physician: ALFREDO BAR - History of Present Illness Patient is a 69 y/o female with PMH of anxiety/depresion and new onset dementia? who presented to ED with c/o acute onset of N/V and diarrhea with associated abdominal pain approximately 9 days ago with now persistent N/V and inability to tolerate PO. Upon admission, she was found to have hyponatremia to which she was admitted, along with hypokalemia and leukocytosis. Abd CT negative for acute process. GI has been consulted for N/V. This morning patient was resting in bed w/o acute distress. She reports feeling better with symptoms improved. No cur rent abdomina pain. BM this am with stool thickening. No episodes of vomiting today. Ate solid food for breakfast w/o difficulty. Denies fever, CP, SOB, signs of bleeding or constipation. States she was around a family member who was sick with same symptoms prior to her symptoms developing, but no recent travel or antibiotics. No NSAID use or hx of PUD. Does not recall ever undergoing an EGD. Past History Past Medical History: other (see HPI) Past Surgical History: Other (unknown) Social history: denies: smoking, alcohol abuse Medications and Allergies Allergies Allergy/AdvReac Type Severity Reaction Status Date / Time No Known Drug Allergies Allergy Unknown Verified 09/26/14 14:31 Home Medications Medication Instructions Recorded Confirmed Last Taken Type Escitalopram [Lexapro] 20 mg PO DAILY 09/26/14 11/07/19 Unknown History Gabapentin 400 mg PO TID 09/26/14 11/07/19 Unknown History buPROPion SR [Wellbutrin SR] 100 mg PO BID 09/26/14 11/07/19 Unknown History Potassium Chloride [K-Dur] 20 meq PO BID #30 tablet 10/01/14 11/07/19 Unknown Rx Promethazine HCl [Promethazine TAB] 12.5 mg PO [id number] PRN #12 tab 09/27/19 11/07/19 Unknown Rx Levothyroxine [Synthroid] 75 mcg PO QAM 11/07/19 11/07/19 Unknown History [place] Carbonate ER [Lithobid ER] 1 tab PO QHS 11/07/19 11/08/19 Unknown History QUEtiapine [SEROquel] 100 mg PO QDAY 11/07/19 11/07/19 Unknown History Active Meds: Active Medications Acetaminophen (Tylenol) 650 mg PO Q4H PRN PRN Reason: Pain MILD(1-3)/Fever >100.5/HUMPHRIES Last Admin: 11/08/19 16:27 Dose: 650 mg Documented by: Bupropion HCl (Wellbutrin Sr) 100 mg PO BID [facility] Last Admin: 11/08/19 22:05 Dose: 100 mg Documented by: Escitalopram Oxalate (Lexapro) 20 mg PO DAILY [facility] Last Admin: 11/08/19 19:24 Dose: 20 mg Documented by: Gabapentin (Gabapentin) 400 mg PO TID [facility] Last Admin: 11/08/19 19:37 Dose: Not Given Documented by: Sodium Chloride (Nacl 0.9% 1000 Ml) 1,000 mls @ 125 mls/hr IV DIRECT [facility] Last Admin: 11/09/19 06:30 Dose: 125 mls/hr Documented by: Levothyroxine Sodium (Synthroid) 75 mcg PO QAM [facility] [place] Carbonate (Lithobid Er) 300 mg PO QHS [facility] Last Admin: 11/08/19 22:06 Dose: 300 mg Documented by: Metoclopramide HCl (Reglan) 10 mg IV Q6H PRN PRN Reason: Nausea And Vomiting Ondansetron HCl (Zofran) 4 mg IV Q4H PRN PRN Reason: Nausea And Vomiting Last Admin: 11/08/19 12:22 Dose: 4 mg Documented by: Pantoprazole Sodium (Protonix) 40 mg IV BID [facility] Pneumococcal Polyvalent Vaccine (Pneumovax 23) 0.5 ml IM .ONCE ONE Stop: 11/09/19 12:01 Potassium Chloride (K-Dur) 20 meq PO BID [facility] Last Admin: 11/08/19 22:05 Dose: 20 meq Documented by: Promethazine HCl (Phenergan) 25 mg [place] QID PRN PRN Reason: Nausea And Vomiting Last Admin: 11/08/19 14:26 Dose: 25 mg Documented by: Promethazine HCl (Phenergan) 12.5 mg PO Q6H PRN PRN Reason: Nausea And Vomiting Last Admin: 11/08/19 19:23 Dose: 12.5 mg Documented by: Quetiapine Fumarate (Seroquel) 100 mg PO QDAY [facility] Sodium Chloride (Sodium Chloride Flush Syringe 10 Ml) 10 ml IV BID [facility] Last Admin: 11/08/19 22:06 Dose: 10 ml Documented by: Sodium Chloride (Sodium Chloride Flush Syringe 10 Ml) 10 ml IV PRN PRN PRN Reason: LINE FLUSH medications reviewed/updated as required Review of Systems - Review of Systems All systems: negative Gastrointestinal: nausea, vomiting, diarrhea Exam - Constitutional Vital Signs: Temp Pulse Resp BP Pulse Ox 98.9 F 69 18 160/83 95 11/09/19 07:46 11/09/19 07:46 11/09/19 09:27 11/09/19 07:46 11/09/19 09:27 General appearance: no acute distress - EENT Eyes: PERRL, EOM intact ENT: hearing intact - Respiratory Respiratory effort: normal Respiratory: bilateral: CTA - Cardiovascular Rhythm: regular - Gastrointestinal General gastrointestinal: Present: soft, non-tender, non-distended, normal bowel sounds - Integumentary Integumentary: Present: warm, dry - Neurologic Neurological: oriented to person, oriented to place - Labs CBC & Chem 7: 11/08/19 03:47 11/09/19 07:32 Lab Results: Laboratory Results - last 24 hr 11/09/19 07:32 Sodium 138 D Potassium 3.0 L Chloride 105.9 Carbon Dioxide 17 L Anion Gap 18 BUN 5 L Creatinine 0.7 Estimated GFR > 60 BUN/Creatinine Ratio 7 Glucose 101 H Calcium 7.9 L Magnesium 1.90 Assessment and Plan 1.N/V -afebrile -LFTs and lipase WNL -WBC 13 -H/H WNL- no signs of bleeding or abd pain -abd CT negative for acute process (GB normal) -clinically, patient reports feeling better with smptoms improved. No current abd pain or vomiting. Tolerated solid food for breakfast this am. -no plan for EGD at this time, consider based on progress -continue PPI and supportive care -if continues to tolerated diet, okay to be d/c per GI standpoint with f/u in clinic for further workup if symptoms persist <SHYANN SPARKS - Last Filed: 11/09/19 14:19> Medications and Allergies Active Meds: Active Medications Acetaminophen (Tylenol) 650 mg PO Q4H PRN PRN Reason: Pain MILD(1-3)/Fever >100.5/HUMPHRIES Last Admin: 11/08/19 16:27 Dose: 650 mg Documented by: Bupropion HCl (Wellbutrin Sr) 100 mg PO BID [facility] Last Admin: 11/09/19 11:00 Dose: 100 mg Documented by: Escitalopram Oxalate (Lexapro) 20 mg PO DAILY [facility] Last Admin: 11/09/19 11:00 Dose: 20 mg Documented by: Gabapentin (Gabapentin) 400 mg PO TID [facility] Last Admin: 11/09/19 08:35 Dose: Not Given Documented by: Sodium Chloride (Nacl 0.9% 1000 Ml) 1,000 mls @ 125 mls/hr IV DIRECT [facility] Last Admin: 11/09/19 06:30 Dose: 125 mls/hr Documented by: Levothyroxine Sodium (Synthroid) 75 mcg PO QAM [facility] Last Admin: 11/09/19 11:00 Dose: 75 mcg Documented by: [place] Carbonate (Lithobid Er) 300 mg PO QHS [facility] Last Admin: 11/08/19 22:06 Dose: 300 mg Documented by: Metoclopramide HCl (Reglan) 10 mg IV Q6H PRN PRN Reason: Nausea And Vomiting Last Admin: 11/09/19 11:18 Dose: 10 mg Documented by: Ondansetron HCl (Zofran) 4 mg IV Q4H PRN PRN Reason: Nausea And Vomiting Last Admin: 11/08/19 12:22 Dose: 4 mg Documented by: Pantoprazole Sodium (Protonix) 40 mg IV BID [facility] Last Admin: 11/09/19 10:59 Dose: 40 mg Documented by: Potassium Chloride (K-Dur) 20 meq PO BID [facility] Last Admin: 11/09/19 10:59 Dose: 20 meq Documented by: Promethazine HCl (Phenergan) 25 mg [place] QID PRN PRN Reason: Nausea And Vomiting Last Admin: 11/08/19 14:26 Dose: 25 mg Documented by: Promethazine HCl (Phenergan) 12.5 mg PO Q6H PRN PRN Reason: Nausea And Vomiting Last Admin: 11/08/19 19:23 Dose: 12.5 mg Documented by: Quetiapine Fumarate (Seroquel) 100 mg PO QDAY [facility] Last Admin: 11/09/19 11:00 Dose: 100 mg Documented by: Sodium Chloride (Sodium Chloride Flush Syringe 10 Ml) 10 ml IV BID [facility] Last Admin: 11/08/19 22:06 Dose: 10 ml Documented by: Sodium Chloride (Sodium Chloride Flush Syringe 10 Ml) 10 ml IV PRN PRN PRN Reason: LINE FLUSH Exam - Constitutional Vital Signs: Temp Pulse Resp BP Pulse Ox 98.4 F 65 20 122/63 97 11/09/19 13:16 11/09/19 13:16 11/09/19 13:16 11/09/19 13:16 11/09/19 13:16 - Labs CBC & Chem 7: 11/08/19 03:47 11/09/19 07:32 Lab Results: Laboratory Results - last 24 hr 11/09/19 07:32 Sodium 138 D Potassium 3.0 L Chloride 105.9 Carbon Dioxide 17 L Anion Gap 18 BUN 5 L Creatinine 0.7 Estimated GFR > 60 BUN/Creatinine Ratio 7 Glucose 101 H Calcium 7.9 L Magnesium 1.90 Assessment and Plan Patient seen and examined; agree with note above. N/V for 1-2 weeks prior to admission; improved now and tolerating po. may have had acute gastroenteritis episode. denies abd pain. no acute process on imaging. diet as tolerated and cont supportive care. given improved sx's, will hold off on endoscopy. will sign off, please call as needed or with questions.
[2019-11-09] MEDS: PANTOPRAZOLE 40 MG INJ IV SCH (10:59)
[2019-11-09] MEDS: POTASSIUM CHLORIDE ER 20 MEQ TAB PO SCH ×2 (10:59→21:44)
[2019-11-09] MEDS: QUEtiapine 100 MG TAB PO SCH (11:00)
[2019-11-09] MEDS: ESCITALOPRAM 10 MG TAB PO SCH (11:00)
[2019-11-09] MEDS: LEVOTHYROXINE 75 MCG TAB PO SCH (11:00)
[2019-11-09] MEDS: buPROPion SR 100 MG TAB PO SCH ×2 (11:00→21:43)
[2019-11-09] MEDS ORDERED: PNEUMOCOCCAL 23 Valent 0.5 ML VIAL IM ONE (12:00)
--- NOTE | 2019-11-09 12:08 | Consultation ---
History of Present Illness - Reason for Consult Consult date: 11/09/19 - History of Present Illness 69 yo F PMHx anxiety, depression, dementia admitted to the hospital for N+V. She notes these symptoms began approximately 9 days prior to admission. She was also seen at [facility] 4 days prior to admission for the same complaints, and was dishcarged from the emergency room there. She had also been seen at our emergency room on 11/05 (different MRN) for the same complaints. At that time her workup included a normal CAT scan, and subsequent discharge home. She has had decreased oral intake over this time period as well. She has not travelled anywhere recently and has not had any courses of antibiotics. Presently, she notes that her symptoms have improved and that she ate breakfast this morning. Afebrile since admission with a white count of 13. Not currently receiving antibiotics. No cultures available for review. Imaging personally reviewed: CTAP: no significant abnormality. Review of systems: Bold if positive; otherwise negative GENERAL: fever, chills, weight loss, fatigue, night sweats EYES: blurry vision, eye pain HENT: headache, hearing loss, sore throat, dysphagia, sinus pain CARDIO: chest pain, palpitations, orthopnea PULM: shortness of breath, wheezing, cough, sputum, hemoptysis GI: nausea, vomiting, diarrhea, abdominal pain, blood in stool : urinary frequency, urgency, dysuria, urethral discharge MSK: joint pain, back pain, swelling SKIN: rash, redness HEME: easy bruising, bleeding Past History Past Medical History: other (see HPI) Past Surgical History: Other (unknown) Social history: denies: smoking, alcohol abuse Family history: hypertension Medications and Allergies Allergies Allergy/AdvReac Type Severity Reaction Status Date / Time No Known Drug Allergies Allergy Unknown Verified 09/26/14 14:31 Home Medications Medication Instructions Recorded Confirmed Last Taken Type Escitalopram [Lexapro] 20 mg PO DAILY 09/26/14 11/07/19 Unknown History Gabapentin 400 mg PO TID 09/26/14 11/07/19 Unknown History buPROPion SR [Wellbutrin SR] 100 mg PO BID 09/26/14 11/07/19 Unknown History Potassium Chloride [K-Dur] 20 meq PO BID #30 tablet 10/01/14 11/07/19 Unknown Rx Promethazine HCl [Promethazine TAB] 12.5 mg PO [id number] PRN #12 tab 09/27/19 11/07/19 Unknown Rx Levothyroxine [Synthroid] 75 mcg PO QAM 11/07/19 11/07/19 Unknown History [place] Carbonate ER [Lithobid ER] 1 tab PO QHS 11/07/19 11/08/19 Unknown History QUEtiapine [SEROquel] 100 mg PO QDAY 11/07/19 11/07/19 Unknown History Active Meds: Active Medications Acetaminophen (Tylenol) 650 mg PO Q4H PRN PRN Reason: Pain MILD(1-3)/Fever >100.5/HUMPHRIES Last Admin: 11/08/19 16:27 Dose: 650 mg Documented by: Bupropion HCl (Wellbutrin Sr) 100 mg PO BID [facility] Last Admin: 11/09/19 11:00 Dose: 100 mg Documented by: Escitalopram Oxalate (Lexapro) 20 mg PO DAILY [facility] Last Admin: 11/09/19 11:00 Dose: 20 mg Documented by: Gabapentin (Gabapentin) 400 mg PO TID [facility] Last Admin: 11/09/19 08:35 Dose: Not Given Documented by: Sodium Chloride (Nacl 0.9% 1000 Ml) 1,000 mls @ 125 mls/hr IV DIRECT [facility] Last Admin: 11/09/19 06:30 Dose: 125 mls/hr Documented by: Levothyroxine Sodium (Synthroid) 75 mcg PO QAM [facility] Last Admin: 11/09/19 11:00 Dose: 75 mcg Documented by: [place] Carbonate (Lithobid Er) 300 mg PO QHS [facility] Last Admin: 11/08/19 22:06 Dose: 300 mg Documented by: Metoclopramide HCl (Reglan) 10 mg IV Q6H PRN PRN Reason: Nausea And Vomiting Last Admin: 11/09/19 11:18 Dose: 10 mg Documented by: Ondansetron HCl (Zofran) 4 mg IV Q4H PRN PRN Reason: Nausea And Vomiting Last Admin: 11/08/19 12:22 Dose: 4 mg Documented by: Pantoprazole Sodium (Protonix) 40 mg IV BID [facility] Last Admin: 11/09/19 10:59 Dose: 40 mg Documented by: Potassium Chloride (K-Dur) 20 meq PO BID [facility] Last Admin: 11/09/19 10:59 Dose: 20 meq Documented by: Promethazine HCl (Phenergan) 25 mg [place] QID PRN PRN Reason: Nausea And Vomiting Last Admin: 11/08/19 14:26 Dose: 25 mg Documented by: Promethazine HCl (Phenergan) 12.5 mg PO Q6H PRN PRN Reason: Nausea And Vomiting Last Admin: 11/08/19 19:23 Dose: 12.5 mg Documented by: Quetiapine Fumarate (Seroquel) 100 mg PO QDAY [facility] Last Admin: 11/09/19 11:00 Dose: 100 mg Documented by: Sodium Chloride (Sodium Chloride Flush Syringe 10 Ml) 10 ml IV BID [facility] Last Admin: 11/08/19 22:06 Dose: 10 ml Documented by: Sodium Chloride (Sodium Chloride Flush Syringe 10 Ml) 10 ml IV PRN PRN PRN Reason: LINE FLUSH Physical Examination - Physical Exam Narrative exam: General Normal appearance, well developed, no acute distress Eyes - PERRLA, EOM intact ENT - Moist mucous membranes, no lymphadenopathy Neck - No noticeable or palpable swellin Lymph Nodes - No lymphadenopathy Cardiovascular - RRR no m/r/g, no JVD, no carotid bruits Lungs - Clear to auscultation, no use of accessory muscles, no crackles or wheezes. Skin - No rashes, skin warm and dry, no erythematous areas Abdomen - Normal bowel sounds, abdomen soft and nontender Extremities - No edema, cyanosis or clubbing Musculoskeletal - 5/5 strength, normal range of motion, no swollen or erythematous joints. Neurological Alert and oriented x 3, no obvious defect - Constitutional Vitals: Vital Signs Temp Pulse Resp BP Pulse Ox 98.9 F 69 18 160/83 95 11/09/19 07:46 11/09/19 07:46 11/09/19 09:27 11/09/19 07:46 11/09/19 09:27 Temperature -Last 24 Hours Temperature 98.9 F Temperature 98.4 F Temperature 99.2 F Temperature 98.4 F Results - Labs CBC & Chem 7: 11/08/19 03:47 11/09/19 07:32 Labs: Abnormal lab results 11/09/19 Range/Units 07:32 Potassium 3.0 L (3.6-5.0) mmol/L Carbon Dioxide 17 L (22-30) mmol/L BUN 5 L (7-17) mg/dL Glucose 101 H (65-100) mg/dL Calcium 7.9 L (8.4-10.2) mg/dL Assessment and Plan Cultures MRSA: negative. Assessment: 69 yo F PMHx anxiety, depression, dementia admitted with intractible nausea and vomiting. Found to have leukocytosis 1. Leukocytosis: no obvious signs of infection. Her symptoms have largely resolved. Given her decreased PO intake over the last week of so consider hemoconcentration as patient also has thrombocytosis. Follow up WBC in AM after receiving IV hydration and now tolerating PO intake. 2. Nausea and vomiting: resolved 3. Dementia Recs: - continue IV hydration - recheck CBC in AM for WBC trend - monitor off antibiotics for now. Thank you for the consult, we will continue to follow. Dr. Street covering this weekend. [facility] ([facility]) M: [phone] O: [phone] F: [phone]
[2019-11-09] MEDS ORDERED: POTASSIUM CHLORIDE ER 20 MEQ TAB PO ONE (20:00)
[2019-11-09] MEDS: LITHIUM CARBONATE ER 300 MG TAB PO SCH (21:43)
[2019-11-10] MEDS: ACETAMINOPHEN 325 MG TAB PO PRN (02:09)
[2019-11-10] MEDS: SODIUM CHLORIDE 0.9% 1000 ML 1,000 ML IV SCH (06:08)
[2019-11-10] MEDS: GABAPENTIN 400 MG CAP PO SCH ×2 (08:26→13:15)
--- NOTE | 2019-11-10 09:41 | Progress Note ---
Assessment and Plan This is a 69 year old woman who presents with nausea, vomiting. Found to have mild hyponatremia. # Hyponatremia: sodium 134->130->138 with supportive measures. Likely dehydration related. Will follow peripherally, renal function WNL. Further workup pending sodium trend. - replete K prn Subjective Date of service: 11/10/19 Principal diagnosis: Acute Gastritis and Hyponatremia Interval history: No acute issues noted Objective - Exam Narrative Exam: Constitutional: no acute distress Head: NC/AT Neck: supple Lungs: clear to auscultation CV: RRR, no M/R/G Abdomen: soft, non-tender, bowel sounds present Back: nontender Extremities: no edema, pulses WNL Skin: intact Neuro: no focal deficits, alert and oriented x4 - Vital Signs Vital signs: Vital Signs - 12hr 11/10/19 11/10/19 02:00 03:38 Temperature 98.3 F Pulse Rate 62 Pulse Rate [ 62 Right Brachial] Respiratory 18 18 Rate Blood Pressure 165/81 O2 Sat by Pulse 95 97 Oximetry - Lab 11/08/19 03:47 11/09/19 07:32 Most recent lab results Calcium 7.9 mg/dL (8.4-10.2) L 11/09/19 07:32 Magnesium 1.90 mg/dL (1.7-2.3) 11/09/19 07:32 Medications & Allergies - Medications Allergies/Adverse Reactions: Allergies No Known Drug Allergies Allergy (Verified 09/26/14 14:31) Unknown Home Medications: Home Medications Medication Instructions Recorded Confirmed Last Taken Type Escitalopram [Lexapro] 20 mg PO DAILY 09/26/14 11/07/19 Unknown History Gabapentin 400 mg PO TID 09/26/14 11/07/19 Unknown History buPROPion SR [Wellbutrin SR] 100 mg PO BID 09/26/14 11/07/19 Unknown History Potassium Chloride [K-Dur] 20 meq PO BID #30 tablet 10/01/14 11/07/19 Unknown Rx Promethazine HCl [Promethazine TAB] 12.5 mg PO [id number] PRN #12 tab 09/27/19 11/07/19 Unknown Rx Levothyroxine [Synthroid] 75 mcg PO QAM 11/07/19 11/07/19 Unknown History [place] Carbonate ER [Lithobid ER] 1 tab PO QHS 11/07/19 11/08/19 Unknown History QUEtiapine [SEROquel] 100 mg PO QDAY 11/07/19 11/07/19 Unknown History Active Medications: Generic Name Dose Route Start Last Admin Trade Name Freq PRN Reason Stop Dose Admin Acetaminophen 650 mg 11/07/19 23:06 11/10/19 02:09 Tylenol PO 650 mg Q4H PRN Administration Pain MILD(1-3)/Fever >100.5/HUMPHRIES Bupropion HCl 100 mg 11/08/19 22:00 11/09/19 21:43 Wellbutrin Sr PO 100 mg BID [facility] Administration Escitalopram Oxalate 20 mg 11/08/19 19:00 11/09/19 11:00 Lexapro PO 20 mg DAILY [facility] Administration Gabapentin 400 mg 11/08/19 20:00 11/09/19 21:43 Gabapentin PO 400 mg TID [facility] Administration Sodium Chloride 1,000 mls @ 125 mls/hr 11/07/19 23:15 11/10/19 06:08 Nacl 0.9% 1000 Ml IV 125 mls/hr DIRECT [facility] Administration Levothyroxine Sodium 75 mcg 11/09/19 10:00 11/09/19 11:00 Synthroid PO 75 mcg QAM [facility] Administration [place] Carbonate 300 mg 11/08/19 22:00 11/09/19 21:43 Lithobid Er PO 300 mg QHS [facility] Administration Metoclopramide HCl 10 mg 11/09/19 06:45 11/09/19 11:18 Reglan IV 10 mg Q6H PRN Administration Nausea And Vomiting Ondansetron HCl 4 mg 11/07/19 23:06 11/08/19 12:22 Zofran IV 4 mg Q4H PRN Administration Nausea And Vomiting Pantoprazole Sodium 40 mg 11/09/19 06:44 11/10/19 00:00 Protonix IV 40 mg BID [facility] Administration Pneumococcal Polyvalent Vaccine 0.5 ml 11/10/19 12:00 Pneumovax 23 IM 11/10/19 12:01 .ONCE ONE Potassium Chloride 20 meq 11/08/19 22:00 11/09/19 21:44 K-Dur PO 20 meq BID [facility] Administration Promethazine HCl 25 mg 11/08/19 14:00 11/08/19 14:26 Phenergan SC 25 mg QID PRN Administration Nausea And Vomiting Promethazine HCl 12.5 mg 11/08/19 19:02 11/08/19 19:23 Phenergan PO 12.5 mg Q6H PRN Administration Nausea And Vomiting Quetiapine Fumarate 100 mg 11/09/19 10:00 11/09/19 11:00 Seroquel PO 100 mg QDAY [facility] Administration Sodium Chloride 10 ml 11/08/19 10:00 11/09/19 21:44 Sodium Chloride Flush Syringe 10 Ml IV 10 ml BID [facility] Administration Sodium Chloride 10 ml 11/07/19 23:06 Sodium Chloride Flush Syringe 10 Ml IV PRN PRN LINE FLUSH
[2019-11-10] MEDS: PANTOPRAZOLE 40 MG INJ IV SCH ×2 (10:25)
[2019-11-10] MEDS: ONDANSETRON 4 MG/2 ML INJ IV PRN (10:25)
[2019-11-10] MEDS: ESCITALOPRAM 10 MG TAB PO SCH (10:25)
[2019-11-10] MEDS: LEVOTHYROXINE 75 MCG TAB PO SCH (10:25)
[2019-11-10] MEDS: buPROPion SR 100 MG TAB PO SCH (10:26)
[2019-11-10] MEDS: QUEtiapine 100 MG TAB PO SCH (10:26)
[2019-11-10] MEDS: POTASSIUM CHLORIDE ER 20 MEQ TAB PO SCH (10:26)
[2019-11-10] MEDS ORDERED: PNEUMOCOCCAL 23 Valent 0.5 ML VIAL IM ONE (12:00)
[2019-11-10] MEDS ORDERED: POTASSIUM CHLORIDE ER 20 MEQ TAB PO ONE (13:16)
--- NOTE | 2019-11-10 14:03 | Discharge Summary ---
Providers - Providers Date of Admission: 11/09/19 07:13 Date of discharge: 11/10/19 Attending physician: ALFREDO BAR 11/08/19 07:31 Physical Therapy Evaluation and Treat [CONS] Routine Comment: Reason For Exam: weakness 11/09/19 07:13 Consult to Physician [CONS] Routine Comment: ki saw patient/dimitri Consulting Provider: SHYANN SPARKS Physician Instructions: Reason For Exam: Persistent Nausea 11/09/19 07:50 Consult to Physician [CONS] Routine Comment: Consulting Provider: PRAVEENA MEAD Physician Instructions: Reason For Exam: intractable nausea, recurrent vomiting Consult to Physician [CONS] Routine Comment: called ans.serv, /dimitri Consulting Provider: MARK ANTHONY HIGGINBOTHAM Physician Instructions: Reason For Exam: worsening hyponatremia 11/09/19 07:51 Consult to Physician [CONS] Routine Comment: called office/ dimitri Consulting Provider: ITZEL WILSON Physician Instructions: Reason For Exam: Leukocytosis, ?infection Primary care physician: GRAPHIC DESIGNER Hospitalization Condition: Stable Hospital course: Patient is a 69-year-old woman with a history of anxiety, depression and de mentia who presented to [facility] ED with intractable n/v x 9 days. She was seen at [facility] [facility] on Tuesday for same symptoms and was discharged home. She came to the emergency room on the of this month, she is under a different is the other MR#), her work-up was negative including a CAT scan of the abdomen and pelvis and she was discharged to home, after tolerating oral intake in the emergency room. Patient is being admitted for intractable nausea, decreased oral intake, diarrhea. * CT abd/pelvis with contast: No acute findings Discharge Diagnoses: Intractable n/v/d most likely AGE: consulted GI, treat with antiemetics Hyponatremia, suspect SIADH Leukocytosis, reactive Hypokalemia h/o Anxiety, depression Disposition: SC-01 TO HOME OR SELFCARE Time spent for discharge: 35 minutes Core Measure Documentation - Palliative Care Palliative Care/ Comfort Measures: Not Applicable - Core Measures Any of the following diagnoses?: none - VTE Discharge Requirements Deep Vein Thrombosis/Pulmonary Embolism Present on Admission: No Has pt received <5 days of overlap therapy or INR<2.0: No Anticoagulant overlap therapy prescribed at discharge: No Contraindication No Overlap Therapy order at DC: Not Indicated Exam - Physical Exam Narrative exam: Gen: WDWN, NAD, Awake, Alert, Orientated HEENT: NCAT, EOMI, PERRL, OP Clear Neck: supple, no adenopathy, no thyromegaly, no JVD CVS/Heart: RRR, normal S1S2, pulses present bilaterally Chest/Lungs: CTA B, Symmetrical chest expansion, good air entry bilaterally GI/Abdomen: soft, NTND, good bowel sounds, no guarding or rebound /Bladder: no suprapubic tenderness, no CVA or paraspinal tenderness Extermity/Skin: no c/c/e, no obvious rash MSK: FROM x 4 Neuro: CN 2-12 grossly intact, no new focal deficits Psych: calm - Constitutional Vitals: Temp Pulse Resp BP Pulse Ox 98.0 F 68 18 147/73 98 11/10/19 09:29 11/10/19 09:29 11/10/19 09:29 11/10/19 09:29 11/10/19 09:29 Plan Activity: other (no strenous activity unless cleared by PCP) Diet: regular Special Instructions: restrict fluid intake to (1500 ml/day), record daily BP diary Follow up with: ITZEL WILSON MD [Staff Physician] - 14 Days SHYANN SPARKS MD [Staff Physician] - 7 Days MARK ANTHONY HIGGINBOTHAM MD [Staff Physician] - 10 Days JACQUELIN GEORGE MD [Staff Physician] - 7 Days Prescriptions: Loperamide HCl [Imodium A-D] 2 mg PO Q12H PRN #10 capsule PRN Reason: Diarrhea Potassium Chloride [K-Dur] 20 meq PO BID #60 tablet Sodium Chloride 1 gm PO BID #30 tablet Ondansetron [Zofran Odt] 4 mg PO Q4H PRN #30 tab.rapdis PRN Reason: Nausea
[2019-11-10] MEDS ORDERED: LOPERAMIDE 2 MG CAP PO PRN (15:10)
[2019-11-10 15:38] VITALS: BP 146/66
== END 2019-11-10 18:35 | disposition home health service (06) | DRG 392 ==
LOC: ED 16:40 → 2B-ACE 22:34 → OBSVTOIN 11-09 07:13
PROVIDERS: ADMIT Internal Medicine; ATTEND Internal Medicine
DX: K52.9 Noninfective gastroenteritis and colitis, unspecified (principal); E87.2 Acidosis; E22.2 Syndrome of inappropriate secretion of antidiuretic hormone; K29.00 Acute gastritis without bleeding; E86.0 Dehydration; F41.9 Anxiety disorder, unspecified; E87.6 Hypokalemia; F32.9 Major depressive disorder, single episode, unspecified; D72.828 Other elevated white blood cell count; F03.90 Unspecified dementia, unspecified severity, without behavioral disturbance, psychotic disturbance, mood disturbance, and anxiety; Z79.899 Other long term (current) drug therapy; Z82.49 Family history of ischemic heart disease and other diseases of the circulatory system; Z23 Encounter for immunization
CPT/HCPCS: 36415; 74177; 80048; 80053; 81001; 83690; 83735; 85025; 87116; 90732; 96374; G0378; C9113; J2405; J2765; J3480; J7030; Q0169; Q9967

== ENCOUNTER 2021-03-21 05:07 | Emergency (ER) | payer MEDICARE ==
[2021-03-21 06:50] LABS: Basophils % (Auto) 0.3 % (0.0-1.8); Eosinophils # (Auto) 0.1 K/mm3 (0.0-0.4); Eosinophils % (Auto) 0.9 % (0.0-4.3); Hematocrit 38.3 % (30.3-42.9); Hemoglobin 13.3 gm/dl (10.1-14.3); Lymphocytes % (Auto) 19.2 % (13.4-35.0); Mean Corpuscular HGB Conc 35 % (30-34); Mean Corpuscular Volume 90 fl (79-97); Monocytes # (Auto) 0.6 K/mm3 (0.0-0.8); Monocytes % (Auto) 5.2 % (0.0-7.3); Platelet Count 465 K/mm3 (140-440); Red Blood Count 4.27 M/mm3 (3.65-5.03); Red Cell Distribution Width 13.2 % (13.2-15.2)
[2021-03-21 07:19] LABS: Alanine Aminotransferase 10 units/L (7-56); Albumin 4.6 g/dL (3.9-5); BUN/Creatinine Ratio 11; Blood Urea Nitrogen 9 mg/dL (7-17); Calcium 9.7 mg/dL (8.4-10.2); Hemolysis Index 4
[2021-03-21] MEDS ORDERED: ALUM-MAG HYDROXIDE-SIMETHICONE 200-200-20MG/5ML ORAL LIQD 30 ML PO ONE (09:07)
[2021-03-21] MEDS ORDERED: LIDOCAINE VISCOUS 2% 15 ML ORAL LIQD PO ONE (09:12)
[2021-03-21] MEDS ORDERED: FAMOTIDINE 20 MG TAB PO ONE (09:17)
--- NOTE | 2021-03-21 09:22 | Emergency Department Report ---
HPI - General Chief Complaint: Abdominal Pain Time Seen by Provider: 03/21/21 08:57 - HPI HPI: This is a 70-year-old female who presents to the emergency department with complaint of generalized abdominal pain, nausea without vomiting, and decre ased appetite, over the past week. She describes the abdominal discomfort as a burning pain that is currently 8 out of 10 in intensity. No known aggravating or alleviating factors. She has been trying Pepto-Bismol for her symptoms without any relief. She has a past medical history of hypothyroidism, anxiety, depression, bipolar disorder. No recent travel or sick contacts at home. She denies any tobacco or illicit drug use. She does not have a primary care physician. ED Past Medical Hx - Past Medical History Previous Medical History?: Yes Hx Psychiatric Treatment: Yes (ANXIETY,DEPRESSION,BIPOLAR) Hx Dementia: Yes (NEW ONSET) Additional medical history: Thyroid Disease - Surgical History Past Surgical History?: No Additional Surgical History: Unable to assess - Social History Smoking Status: Never Smoker Substance Use Type: None - Medications Home Medications: Home Medications Medication Instructions Recorded Confirmed Last Taken Type Levothyroxine [Synthroid] 75 mcg PO QAM 11/07/19 12/04/19 Unknown History Acetaminophen [Acetaminophen TAB] 1 tab PO Q4H PRN #15 tablet 11/10/19 12/04/19 Unknown Rx Loperamide HCl [Imodium A-D] 2 mg PO Q12H PRN #10 capsule 11/10/19 12/04/19 Unknown Rx Potassium Chloride [K-Dur] 20 meq PO BID #60 tablet 11/10/19 12/04/19 Unknown Rx Sodium Chloride 1 gm PO BID #30 tablet 11/10/19 12/04/19 Unknown Rx Escitalopram [Lexapro] 20 mg PO DAILY #30 12/10/19 Unknown Rx Gabapentin 400 mg PO TID #90 capsule 12/10/[address] [facility] Carbonate ER [Lithobid ER] 1 tab PO QHS #30 12/10/19 Unknown Rx QUEtiapine [SEROquel] 100 mg PO QDAY #30 12/10/19 Unknown Rx buPROPion SR [Wellbutrin SR] 100 mg PO BID #60 12/10/19 Unknown Rx donepeziL [Aricept] 10 mg PO QHS #30 12/10/19 Unknown Rx levoFLOXacin [Levaquin TAB] 500 mg PO QDAY tablet 12/10/19 Unknown Rx QUEtiapine [SEROquel] 200 mg PO BID #60 tablet 12/17/19 Unknown Rx buPROPion SR [Wellbutrin SR] 150 mg PO BID #60 tablet 12/17/19 Unknown Rx busPIRone [Buspar] 7.5 mg PO BID #90 tablet 12/17/19 Unknown Rx clonazePAM [KlonoPIN] 0.25 mg PO BID #60 tablet 12/17/19 Unknown Rx Amoxicillin/Potassium Clav 1 each PO BID #14 tablet 03/21/21 Unknown Rx [Augmentin 875-125 Tablet] Omeprazole 20 mg PO QDAY #20 capsule. 03/21/21 Unknown Rx Ondansetron [Zofran ODT TAB] 4 mg PO Q8H PRN #15 tab.rapdis 03/21/21 Unknown Rx ED Review of Systems ROS: Stated complaint: ABD PAIN Other details as noted in HPI Comment: All other systems reviewed and negative Constitutional: denies: chills, fever Eyes: denies: eye pain, vision change ENT: denies: ear pain, throat pain Respiratory: denies: cough, shortness of breath Cardiovascular: denies: chest pain, palpitations Gastrointestinal: abdominal pain, nausea. denies: vomiting Genitourinary: denies: dysuria, discharge Musculoskeletal: denies: back pain, arthralgia Skin: denies: rash, lesions Neurological: denies: headache, weakness Physical Exam - Physical Exam Vital Signs: Vital Signs 03/21/21 06:13 Temperature 98.2 F Pulse Rate 99 H Respiratory 14 Rate Blood Pressure 148/90 O2 Sat by Pulse 97 Oximetry Physical Exam: GENERAL: The patient is well-developed well-nourished. HENT: Normocephalic. Atraumatic. Patient has moist mucous membranes. EYES: Extraocular motions are intact. NECK: Supple. Trachea is midline. CHEST/LUNGS: Clear to auscultation. There is no respiratory distress noted. HEART/CARDIOVASCULAR: Regular. There is no tachycardia. There is no murmur. ABDOMEN: Abdomen is soft. Mild generalized abdominal tenderness to palpation. No guarding. Patient has normal bowel sounds. There is no abdominal distention. SKIN: Skin is warm and dry. NEURO: The patient is awake, alert, and oriented. The patient is cooperative. The patient has no focal neurologic deficits. Normal speech. MUSCULOSKELETAL: There is no tenderness or deformity. There is no limitation range of motion. ED Course Vital Signs 03/21/21 06:13 Temperature 98.2 F Pulse Rate 99 H Respiratory 14 Rate Blood Pressure 148/90 O2 Sat by Pulse 97 Oximetry ED Medical Decision Making - Lab Data Result diagrams: 03/21/21 06:33 03/21/21 06:33 Lab Results 03/21/21 03/21/21 03/21/21 Range/Units 06:33 06:33 09:23 WBC 10.6 (4.5-11.0) K/mm3 RBC 4.27 (3.65-5.03) M/mm3 Hgb 13.3 (10.1-14.3) gm/dl Hct 38.3 (30.3-42.9) % MCV 90 (79-97) fl MCH 31 (28-32) pg MCHC 35 H (30-34) % RDW 13.2 (13.2-15.2) % Plt Count 465 H (140-440) K/mm3 Lymph % (Auto) 19.2 (13.4-35.0) % Coffee % (Auto) 5.2 (0.0-7.3) % Eos % (Auto) 0.9 (0.0-4.3) % Baso % (Auto) 0.3 (0.0-1.8) % Lymph # (Auto) 2.0 (1.2-5.4) K/mm3 Coffee # (Auto) 0.6 (0.0-0.8) K/mm3 Eos # (Auto) 0.1 (0.0-0.4) K/mm3 Baso # (Auto) 0.0 (0.0-0.1) K/mm3 Seg Neutrophils % 74.4 H (40.0-70.0) % Seg Neutrophils # 7.9 H (1.8-7.7) K/mm3 Sodium 136 L (137-145) mmol/L Potassium 3.9 (3.6-5.0) mmol/L Chloride 100.1 (98-107) mmol/L Carbon Dioxide 20 L (22-30) mmol/L Anion Gap 20 mmol/L BUN 9 (7-17) mg/dL Creatinine 0.8 (0.6-1.2) mg/dL Estimated GFR > 60 ml/min BUN/Creatinine Ratio 11 % Glucose 85 (65-100) mg/dL Calcium 9.7 (8.4-10.2) mg/dL Total Bilirubin 0.40 (0.1-1.2) mg/dL AST 17 (5-40) units/L ALT 10 (7-56) units/L Alkaline Phosphatase 67 (35-129) units/L Total Protein 7.8 (6.3-8.2) g/dL Albumin 4.6 (3.9-5) g/dL Albumin/Globulin Ratio 1.4 % Lipase 80 H (13-60) units/L Urine Color (Yellow) Urine Turbidity (Clear) Urine pH (5.0-7.0) Ur Specific [place] (1.003-1.030) Urine Protein (Negative) mg/dL Urine Glucose (UA) (Negative) mg/dL Urine Ketones (Negative) mg/dL Urine Blood (Negative) Urine Nitrite (Negative) Urine Bilirubin (Negative) Urine Urobilinogen (<2.0) mg/dL Ur Leukocyte Esterase (Negative) Urine WBC (Auto) (0.0-6.0) /HPF Urine RBC (Auto) (0.0-6.0) /HPF U Epithel Cells (Auto) (0-13.0) /HPF Urine Bacteria (Auto) (Negative) /HPF Ur Transition Epith Cell /HPF Urine Mucus /HPF [facility] 0.8 (0.0-1.2) mmol/L 06// Range/Units 12:19 WBC (4.5-11.0) K/mm3 RBC (3.65-5.03) M/mm3 Hgb (10.1-14.3) gm/dl Hct (30.3-42.9) % MCV (79-97) fl MCH (28-32) pg MCHC (30-34) % RDW (13.2-15.2) % Plt Count (140-440) K/mm3 Lymph % (Auto) (13.4-35.0) % Coffee % (Auto) (0.0-7.3) % Eos % (Auto) (0.0-4.3) % Baso % (Auto) (0.0-1.8) % Lymph # (Auto) (1.2-5.4) K/mm3 Coffee # (Auto) (0.0-0.8) K/mm3 Eos # (Auto) (0.0-0.4) K/mm3 Baso # (Auto) (0.0-0.1) K/mm3 Seg Neutrophils % (40.0-70.0) % Seg Neutrophils # (1.8-7.7) K/mm3 Sodium (137-145) mmol/L Potassium (3.6-5.0) mmol/L Chloride (98-107) mmol/L Carbon Dioxide (22-30) mmol/L Anion Gap mmol/L BUN (7-17) mg/dL Creatinine (0.6-1.2) mg/dL Estimated GFR ml/min BUN/Creatinine Ratio % Glucose (65-100) mg/dL Calcium (8.4-10.2) mg/dL Total Bilirubin (0.1-1.2) mg/dL AST (5-40) units/L ALT (7-56) units/L Alkaline Phosphatase (35-129) units/L Total Protein (6.3-8.2) g/dL Albumin (3.9-5) g/dL Albumin/Globulin Ratio % Lipase (13-60) units/L Urine Color Yellow (Yellow) Urine Turbidity Cloudy (Clear) Urine pH 6.0 (5.0-7.0) Ur Specific [place] 1.050 H (1.003-1.030) Urine Protein 30 mg/dl (Negative) mg/dL Urine Glucose (UA) Neg (Negative) mg/dL Urine Ketones 80 (Negative) mg/dL Urine Blood Neg (Negative) Urine Nitrite Neg (Negative) Urine Bilirubin Neg (Negative) Urine Urobilinogen < 2.0 (<2.0) mg/dL Ur Leukocyte Esterase Lg (Negative) Urine WBC (Auto) 168.0 H (0.0-6.0) /HPF Urine RBC (Auto) 73.0 (0.0-6.0) /HPF U Epithel Cells (Auto) 41.0 H (0-13.0) /HPF Urine Bacteria (Auto) 2+ (Negative) /HPF Ur Transition Epith Cell 7 /HPF Urine Mucus Few /HPF [facility] (0.0-1.2) mmol/L - Radiology Data Radiology results: report reviewed, image reviewed interpreted by me: Chest x-ray does not show any acute process. There are no pleural effusions, obvious pneumonia and there is no pneumothorax. No widened mediastinum. Abdominal x-ray shows nonspecific nonobstructive bowel gas. No free air. CT ABDOMEN AND PELVIS WITH CONTRAST INDICATION: Patient complains of "Generalized" abd pain with nausea x 1 week. TECHNIQUE: Axial CT images were obtained through the abdomen and pelvis after 100 cc IV contrast. All CT scans at this location are performed using CT dose reduction for ALARA by means of automated exposure control. COMPARISON: CT abdomen pelvis 12/03/2019 FINDINGS: LOWER CHEST: No significant abnormality. LIVER: No significant abnormality. GALLBLADDER: No significant abnormality. BILE DUCTS: No significant abnormality. PANCREAS: No significant abnormality. SPLEEN: No significant abnormality. ADRENALS: No significant abnormality. RIGHT KIDNEY and URETER: No significant abnormality. LEFT KIDNEY and URETER: No significant abnormality. STOMACH and SMALL BOWEL: Probable mild bowel wall thickening involving distal ileum. No bowel obstruction COLON: Mild sigmoid diverticulosis. APPENDIX: Normal. PERITONEUM: No free fluid. No free air. No fluid collection. LYMPH NODES: No significant adenopathy. AORTA and ARTERIES: No significant abnormality. IVC and VEINS: No significant abnormality. URINARY BLADDER: No significant abnormality. REPRODUCTIVE ORGANS: Surgically absent ADDITIONAL FINDINGS: None. SKELETAL SYST EM: Osteopenia with old compression fractures T12 and L1 vertebrae with moderate degenerative changes of lumbar spine, unchanged IMPRESSION: 1. Possible Crohn's disease with mild mucosal thickening distal ileum. Please correlate clinically with colonoscopy and biopsy 2. No CT evidence for appendicitis or other acute inflammatory process 3. Sigmoid diverticulosis without diverticulitis. 4. Old T12 and L1 compression fractures - Medical Decision Making This patient presents with a complaint of a burning abdominal pain and some nausea without vomiting has been going on for the past week. On examination the abdomen is soft, nondistended and nontoxic in appearance. Patient's labs have been mostly unremarkable except for an elevated lipase level and a urinalysis that shows UTI and some hematuria. CT scan of the abdomen and pelvis shows inflammatory changes of the ileum concerning for something such as Crohn's disease and outpatient follow-up with endoscopy and possible biopsy are recommended. Vital signs reassuring throughout her ED course. Patient was given a GI cocktail and a dose of Pepcid. She was given some IV fluid resuscitation. She appears safe for discharge home at this time. She has been given outpatient referrals for primary care and gastroenterology. She will return to the emergency department with any worsening of her symptoms or with any acute distress. Critical Care Time: No Critical care attestation.: If time is entered above; I have spent that time in minutes in the direct care of this critically ill patient, excluding procedure time. ED Disposition Clinical Impression: Dehydration, Ileitis Abdominal pain Qualifiers: Abdominal location: generalized Qualified Code(s): R10.84 - Generalized abdominal pain UTI (urinary tract infection) Qualifiers: Urinary tract infection type: acute cystitis Hematuria presence: with hematuria Qualified Code(s): N30.01 - Acute cystitis with hematuria Disposition: TO HOME OR SELFCARE Is pt being admited?: No Condition: Stable Instructions: Abdominal Pain, Adult, Urinary Tract Infection, Adult, De hydration, Adult, Abdominal Pain (ED) Additional Instructions: Please follow-up with a primary care physician in the next few days. I am giving you a referral for a local primary care physician, Dr. Kavin Ramos, as well as a primary care clinic, [facility]. The CT scan of your abdomen and pelvis showed some inflammatory changes of your small intestine that will need further outpatient evaluation. I am giving you a referral for [facility]. Please take all medications as prescribed. Increase your oral rehydration. Return to the emergency department with any worsening of your symptoms, new or concerning symptoms not addressed during this current emergency department visit, or with any acute distress. Prescriptions: Amoxicillin/Potassium Clav [Augmentin 875-125 Tablet] 1 each PO BID #14 tablet Omeprazole 20 mg PO QDAY #20 capsule. Ondansetron [Zofran ODT TAB] 4 mg PO Q8H PRN #15 tab.rapdis PRN Reason: Nausea Referrals: PRIMARY MD JOHN [Primary Care Provider] - 2-3 Days KAVIN RAMOS MD [Staff Physician] - 2-3 Days [facility] [Provider Group] - 2-3 Days [facility] [Provider Group] - 2-3 Days Time of Disposition: 12:59
--- NOTE | 2021-03-21 10:07 | XRay Report ---
ABDOMEN 3 VIEW(S) INDICATION / CLINICAL INFORMATION: Abd pain. COMPARISON: Abdomen x-ray 12/01/2019 FINDINGS: TUBES / LINES: None. BOWEL GAS PATTERN: No significant abnormality. FREE AIR / EXTRALUMINAL GAS: None seen. ADDITIONAL FINDINGS: Moderate thoracolumbar scoliosis again noted. IMPRESSION: 1. No significant abnormality. Signer Name: Juanjose Canada MD Signed: 03/21/2021 10:03 AM Workstation Name: [id number]
[2021-03-21] MEDS ORDERED: SODIUM CHLORIDE 0.9% 500 ML 500 ML IV ONE (10:51)
--- NOTE | 2021-03-21 12:27 | Cat Scan Report ---
CT ABDOMEN AND PELVIS WITH CONTRAST INDICATION: Patient complains of "Generalized" abd pain with nausea x 1 week. TECHNIQUE: Axial CT images were obtained through the abdomen and pelvis after 100 cc IV contrast. All CT scans at this location are performed using CT dose reduction for ALARA by means of automated exposure contr ol. COMPARISON: CT abdomen pelvis 12/03/2019 FINDINGS: LOWER CHEST: No significant abnormality. LIVER: No significant abnormality. GALLBLADDER: No significant abnormality. BILE DUCTS: No significant abnormality. PANCREAS: No significant abnormality. SPLEEN: No significant abnormality. ADRENALS: No significant abnormality. RIGHT KIDNEY and URETER: No significant abnormality. LEFT KIDNEY and URETER: No significant abnormality. STOMACH and SMALL BOWEL: Probable mild bowel wall thickening involving distal ileum. No bowel obstruc tion COLON: Mild sigmoid diverticulosis. APPENDIX: Normal. PERITONEUM: No free fluid. No free air. No fluid collection. LYMPH NODES: No significant adenopathy. AORTA and ARTERIES: No significant abnormality. IVC and VEINS: No significant abnormality. URINARY BLADDER: No significant abnormality. REPRODUCTIVE ORGANS: Surgically absent ADDITIONAL FINDINGS: None. SKELETAL SYSTEM: Osteopenia with old compression fractures T12 and L1 vertebrae with moderate degener ative changes of lumbar spine, unchanged IMPRESSION: 1. Possible Crohn's disease with mild mucosal thickening distal ileum. Please correlate clinically wi th colonoscopy and biopsy 2. No CT evidence for appendicitis or other acute inflammatory process 3. Sigmoid diverticulosis without diverticulitis. 4. Old T12 and L1 compression fractures Signer Name: Juanjose Canada MD Signed: 03/21/2021 12:23 PM Workstation Name: [id number]
[2021-03-21 12:44] LABS: Bacteria,Urine 2+ /HPF (Negative); Bilirubin,Urine NEG (Negative); Blood,Urine NEG (Negative); Color,Urine Yellow (Yellow); Mucus,Urine FEW /HPF; Urobilinogen,Urine < 2.0 mg/dL (<2.0)
[2021-03-21 13:32] VITALS: BP 138/75
== END 2021-03-21 13:24 | disposition home or self-care (01) ==
LOC: ED 05:07
DX: N39.0 Urinary tract infection, site not specified (principal); K52.9 Noninfective gastroenteritis and colitis, unspecified; E86.0 Dehydration; R10.84 Generalized abdominal pain; F41.9 Anxiety disorder, unspecified; F31.9 Bipolar disorder, unspecified; F03.90 Unspecified dementia, unspecified severity, without behavioral disturbance, psychotic disturbance, mood disturbance, and anxiety; Z79.899 Other long term (current) drug therapy; Z88.8 Allergy status to other drugs, medicaments and biological substances
CPT/HCPCS: 36415; 74022; 74177; 80053; 80178; 81001; 83690; 85025; 99285; J7040; Q9967